=== PATIENT | male | born 1940 | race Two or more races ===

== ENCOUNTER 2021-10-24 07:53 | Outpatient (CLI) | payer OTHER | END 2021-10-24 07:54 | disposition home or self-care (01) | LOC: NUCLEAR 07:53 | PROVIDERS: ATTEND Internal Medicine Cardiovascular Disease | DX: I73.9 Peripheral vascular disease, unspecified (principal) ==

== ENCOUNTER 2024-12-22 07:16 | Outpatient (CLI) | payer OTHER | END 2024-12-22 07:18 | disposition home or self-care (01) | LOC: NUCLEAR 07:16 | PROVIDERS: ATTEND Internal Medicine | DX: I20.9 Angina pectoris, unspecified (principal) | CPT/HCPCS: 78452; 93017; A9500; J0153 ==